=== PATIENT | male | born 1970 | race African-American/Black ===

== ENCOUNTER 2016-07-15 12:27 | Emergency (ER) | payer BC ==
[2016-07-15 12:21] LABS: URINE SOURCE CLEAN CATCH
[2016-07-15 12:25] LABS: URINE APPEARANCE CLEAR; URINE BILIRUBIN NEG (NEG); URINE BLOOD NEG (NEG); URINE COLOR YELLOW; URINE GLUCOSE NEG (NEG); URINE KETONE NEG (NEG); URINE LEUKOCYTE ESTERASE 1+ (NEG); URINE NITRATE NEG (NEG); URINE PROTEIN NEG (NEG); URINE SPECIFIC GRAVITY 1.025 (1.003-1.035)
[2016-07-15 12:46] LABS: CULTURE INDICATED? NO; URBCS1 AUWI 0-2 /[HPF] (0-2); URINE BACTERIA AUWI NEG (NEGATIVE); URINE SQUAMOUS EPITHELIAL CELL FEW /[HPF]
== END 2016-07-15 12:55 | disposition home or self-care (01) ==
LOC: CFTX 12:27
PROVIDERS: Physician Assistant Medical
DX: N45.1 Epididymitis (principal); F17.210 Nicotine dependence, cigarettes, uncomplicated
CPT/HCPCS: 81003; 99283